=== PATIENT | female | born 1960 | race Caucasian/White ===

== ENCOUNTER 2016-10-08 21:19 | Emergency (ER) | payer OTHER ==
[~2016-10-08] VITALS: Ht 160 cm; Wt 49.0 kg
[2016-10-08 21:28] VITALS: BP 124/75; PULSE 90; RESP 18; TEMP 98.3; O2SAT 98
--- NOTE | 2016-10-08 21:47 | PD ---
HPI Chief Complaint: musculoskeletal complaint Time Seen by Provider: 21:40 Travel History International Travel<30 days: No Contact w/Intl Traveler<30days: No History of Present Illness HPI 56-year-old female presents to the emergency room for evaluation of right knee pain and swelling after injuring it earlier today. Patient accidentally twisted her ankle in the garage while wearing flip-flops and fell forward striking her right knee on the concrete. She had immediate pain and swelling. She has not been able to walk on it since. Reports excruciating pain. She has not taken anything for her symptoms. Patient denies paresthesias. Patient reports being previously addicted to opioids and is requesting not to have any prescribed. Denies any other injuries. [facility] Social History Tobacco Use: Yes Allergies-Medications (Allergen,Severity, Reaction): Coded Allergies: Aspirin (Verified Allergy, Severe, swollen throat, 10/08/16) Penicillin (Verified Allergy, Severe, swollen throat, 10/08/16) Review of Systems Except as stated in HPI: all other systems reviewed are Neg Physical Exam Narrative GENERAL: Well-nourished, well-developed female in no acute distress. Afebrile. SKIN: No rashes or lesions. Cool and dry. Mild to moderate ecchymosis over the right kneecap with a superficial abrasion. HEAD: Normocephalic. EYES: No scleral icterus. No injection or drainage. NECK: Supple, trachea midline. No JVD or lymphadenopathy. CARDIOVASCULAR: Regular rate and rhythm without murmurs, gallops, or rubs. RESPIRATORY: Breath sounds equal bilaterally. No accessory muscle use. MUSCULOSKELETAL: No cyanosis. Extremities edema of the right knee. Patient cannot fully extend knee. She has full flexion. 2+ dorsalis pedis pulse. Extreme tenderness to palpation of the entire area especially over the lateral aspect. Data Data Last Documented VS Vital Signs Date Time Temp Pulse Resp B/P Pulse Ox O2 Delivery O2 Flow Rate FiO2 10/08/16 21:28 98.3 90 18 124/75 98 Orders Knee, Complete (4vws) (10/08/16 ) [facility] Medical Decision Making Medical Screen Exam Complete: Yes Emergency Medical Condition: Yes Medical Record Reviewed: Yes Differential Diagnosis Fracture, sprain, strain, contusion Narrative Course 56-year-old female presents to the emergency room for evaluation of right knee pain and swelling after falling earlier today. Patient slipped and her right patella landed directly on the concrete. Denies any other injuries. Right lower extremity is neurovascularly intact with 2+ dorsalis pedis pulse. Limited range of motion secondary to pain. There is mild ecchymosis with extreme edema/effusion. Extreme tenderness to palpation. X-ray shows minimally displaced fracture at the inferior patella. Patient was placed in a knee immobilizer and discharged with crutches. She was told to take Motrin for pain and follow up with the orthopedic surgeon or return for worsening symptoms. She understands and agrees to plan. Diagnosis Primary Impression: Patella fracture Qualified Code: S82.001A - Closed displaced fracture of right patella, unspecified fracture morphology, initial encounter Referrals: Primary Care Physician Patient Instructions: General Instructions, Patellar Fracture (ED) Additional Instructions: Rest and drink plenty of fluids. Do not bear weight. Keep splint on until follow-up. Take ibuprofen with food as directed, as needed for pain. Apply ice to the affected area for 20 minutes at a time, as needed for pain and swelling. Follow-up with orthopedic surgeon. Return to the emergency room for worsening symptoms. Disposition: 01 DISCHARGE HOME Condition: Stable Elayne Wright Oct 08, 2016 21:47
--- NOTE | 2016-10-08 22:31 | RADRPT ---
EXAM DATE/TIME: 10/08/2016 21:59 [facility] COMPARISON: No previous studies available for comparison. INDICATIONS : Right knee pain due to fall. MEDICAL HISTORY : None. SURGICAL HISTORY : Hysterectomy. ENCOUNTER: Initial ACUITY: 1 day PAIN SCORE: 7/10 LOCATION: Right knee FINDINGS: Four view examination of the right knee demonstrates minimal fracture along the inferior patella. Candice nt effusion and soft tissue swelling. No other fracture. Joint spaces are maintained. CONCLUSION: Minimally displaced fracture along the inferior patella. eKith Willard MD on October 08, 2016 at 22:29 Board Certified Radiologist. This report was verified electronically.
== END 2016-10-08 23:00 | disposition home or self-care (01) ==
LOC: PHEFT 21:19
DX: S82.091A Other fracture of right patella, initial encounter for closed fracture (principal); W01.0XXA Fall on same level from slipping, tripping and stumbling without subsequent striking against object, initial encounter; Y93.9 Activity, unspecified; Y92.89 Other specified places as the place of occurrence of the external cause
CPT/HCPCS: 73564; 99283; E0113; L1830